=== PATIENT | male | born 1970 | race Caucasian/White ===

== ENCOUNTER 2023-02-19 09:57 | Day surgery (SDC) | payer OTHER ==
[2023-02-19] MEDS ORDERED: NA CHLORIDE 0.9% 1,000 ML ONE (10:14)
[2023-02-19] MEDS ORDERED: CEFAZOLIN SODIUM 2 GM/VIAL ONE (10:19)
[2023-02-19] MEDS: BUPIVACAINE 0.25% PF 30 ML VIAL ONE ×2 (11:20→12:21)
[2023-02-19] MEDS ORDERED: FENTANYL CITR 100 MCG/2 ML ONE ×2 (11:55→12:16)
[2023-02-19] MEDS ORDERED: MIDAZOLAM HCL 2 MG/2 ML INJ ONE (11:55)
[2023-02-19] MEDS ORDERED: ROCURONIUM 50 MG/5 ML VIAL IV ONE ×2 (11:55→12:56)
[2023-02-19] MEDS ORDERED: propofoL 200 MG/20 ML VIAL IV ONE (11:55)
[2023-02-19] MEDS ORDERED: LIDOCAINE 2% MPF 5 ML VIAL ONE (11:55)
[2023-02-19] MEDS ORDERED: SUCCINYLCHOLINE 20 MG/ML (10 ML) IV ONE (12:04)
[2023-02-19] MEDS ORDERED: NEOSTIGMINE 1 MG/ML -10 ML VIAL ONE (13:06)
[2023-02-19] MEDS ORDERED: GLYCOPYRROLATE 0.2 MG/ML SYR ONE (13:06)
--- NOTE | 2023-02-19 13:08 | P.OP ---
Preoperative diagnosis: Umbilical Hernia Postoperative diagnosis: Umbilical Hernia Primary procedure: Laparoscopic Umbilical Hernia Repair with mesh Secondary procedure: Laparoscopic reduction of small bowel Anesthesia: GETA + Local Estimated blood loss: <5cc Specimen: pre-peritoneal adipose Findings: ~3cm Umbilical Hernia, Small bowel incarcerated Complications: None Implants: 11.4cm Bard Ventralite mesh, Sorbafix x 45 tacks Transferred to: Recovery Room Condition: Good
[2023-02-19] MEDS ORDERED: KETOROLAC 30 MG/ML INJ ONE (13:21)
[2023-02-19] MEDS: HYDROMORPHONE HCL 1 MG/ML INJ ONE ×2 (13:25→13:34)
--- NOTE | 2023-02-19 14:01 | OP ---
Date of Procedure: 02/19/2023 Surgeon: Skip Julio MD, Preoperative Diagnosis: Umbilical hernia. Postoperative Diagnosis: Umbilical hernia. Procedures Performed: 1.Laparoscopic umbilical hernia repair with mesh. 2.Laparoscopic reduction of incarcerated small bowel. Anesthesia: General endotracheal plus local with 0.25% Marcaine. Estimated Blood Loss: Less than 5 cc. Specimen: Preperitoneal adipose tissue. Findings: Approximately 3 cm umbilical hernia with small bowel incarcerated within the hernia defect requiring adhesiolysis. Complications: None. Implants: 11.[address] mesh with Echo Positioning System. SorbaFix absorbable fixati on tacks, x45 tacks. Disposition: The patient was transferred to the recovery room in good condition. Procedure In Detail: After informed consent was obtained, the patient was brought into the operating room, prepped and draped in the usual sterile fashion after adequate anesthesia. The area of the le ft upper quadrant was anesthetized with 0.25% Marcaine, sharply incised. A 5 mm trocar was placed un wilian direct visualization without evidence of complication. Insufflation was obtained to 15 mmHg at t his time. There was no injury to vital structure upon entry into the abdomen. Additional trocar was placed in the left mid abdomen, which was a 12 mm trocar placed under direct visualization without e vidence of complication. I then inspected the hernia defect, which was found to have incarcerated sm all bowel. I brought the LigaSure device in and performed meticulous dissection of the small bowel o ut of the hernia defect and it was returned to the normal anatomic position. No bowel resection was required at this point and the bowel was intact throughout. The adhesions were simply taken down usi ng a combination of sharp and LigaSure dissection. At this point, the hernia defect was approximatel y 3 cm in size, round. At this time, I opted to use an 11.4 cm Bard Ventralight mesh at this point a nd it was brought to the field. I then removed the preperitoneal fat by using the LigaSure device an d placed in EndoCatch bag, removed through the lateral trocar and sent off for pathologic examination . This allowed for good approximation of the mesh to the anterior abdominal wall. At this point, I brought the Endo Stitch with 0 V-Loc suture and ran this continuously to close the hernia defect imbr icating the hernia sac. When the defect was closed in its entirety with good approximation of tissue s, I then brought the Bard Ventralight ST mesh with Echo Positioning System, deployed at the central portion of the hernia defect and secured to the anterior abdominal wall using SorbaFix fixation tacks . The balloon was removed and found to be intact on the back table. I placed an additional second c rown of tacks to the anterior abdominal wall. A total of 45 SorbaFix absorbable fixation tacks were used to the anterior bowel wall with good approximation of tissues. No hemostatic maneuvers were req uired at this point. I then closed the 12 mm trocar site using a Rafael-Ronna suture passer with 0 Vicryl in interrupted fashion with good approximation of tissues. The abdomen was completely desuf flated under direct visualization without evidence of complication. The final trocar was removed. A ll skin incisions were copiously irrigated and closed with a 4-0 Monocryl in a running fashion. Derm abond placed over top. The patient tolerated the procedure well without evidence of complication and transferred to PACU in good condition. All counts were correct at the end of the case. DANI/LALO Voice ID: [id number] Report ID: [id number]
[2023-02-19 14:16] VITALS: BP 121/59; TEMP 97.1; O2SAT 93
== END 2023-02-19 14:43 | disposition home or self-care (01) ==
LOC: OR 09:57
PROVIDERS: ATTEND Surgery
PROC: 0WUF4JZ Supplement Abdominal Wall with Synthetic Substitute, Percutaneous Endoscopic Approach (ICD-10-PCS; principal; 2023-02-19 11:45)
DX: K42.9 Umbilical hernia without obstruction or gangrene (principal)
CPT/HCPCS: 82947 ×2; 88302; 49592; J2704; J2710; J2001; J2250; J3010 ×2; J1170; J7030; C1781